=== PATIENT | male | born 1975 | race American Indian/Alaskan Native ===

== ENCOUNTER 2021-12-16 09:41 | Emergency (ER) | payer SELFPAY ==
[2021-12-16] MEDS ORDERED: Sodium Chloride 0.9% 1,000 ML IV STA (10:03)
[2021-12-16] MEDS ORDERED: Morphine 4 MG/ML VIAL IVPUSH ONE (10:13)
[2021-12-16 10:55] LABS: CARBON DIOXIDE,CO2 24.2 mmol/L (21.0-32.0); POTASSIUM,K 4.6 mmol/L (3.5-5.1)
[2021-12-16] MEDS ORDERED: Piperacillin/Tazobactam 3.375 GM in Sodium Chloride 0.9% 50 ML IV STA (11:12)
[2021-12-16] MEDS ORDERED: Sodium Chloride 0.9% 1,000 ML IV SCH (11:15)
[2021-12-16 11:26] LABS: BILIRUBIN INDIRECT 0.4
[2021-12-16] MEDS ORDERED: VANCOmycin 1.75 GM/350 ML 1.75 GM in Premix Bag 1 BAG IV ONE (11:30)
[2021-12-16] MEDS ORDERED: Iopamidol 755 MG/ML 500 ML Multipack Bottle IVPUSH STA (11:33)
== END 2021-12-16 19:45 ==
LOC: MW.ED 09:41
DX: A41.9 Sepsis, unspecified organism (principal); D50.0 Iron deficiency anemia secondary to blood loss (chronic); R19.00 Intra-abdominal and pelvic swelling, mass and lump, unspecified site; E87.2 Acidosis; Z20.822 Contact with and (suspected) exposure to COVID-19
CPT/HCPCS: 36415; 74177; 76705; 80053; 80143; 81003; 82247; 82248; 83010; 83605; 83615; 85025; 85379; 85384; 85610; 86308; 87040; 87635; 96361; 96365; 96366; 96368; 96375; 99291; 99292; J2270; J2543; J3370; J7030; P9016; Q9967; U0002

== ENCOUNTER 2022-01-20 16:39 | Emergency (ER) | payer SELFPAY ==
[2022-01-20] MEDS ORDERED: Sodium Chloride 0.9% 1,000 ML IV ONE (19:11)
[2022-01-20 19:20] LABS: CARBON DIOXIDE,CO2 24.3 mmol/L (21.0-32.0); POTASSIUM,K 3.9 mmol/L (3.5-5.1)
[2022-01-20] MEDS ORDERED: Iopamidol 755 MG/ML 500 ML Multipack Bottle IVPUSH STA (20:06)
== END 2022-01-20 21:51 | disposition home or self-care (01) ==
LOC: MW.ED 16:39
DX: K21.9 Gastro-esophageal reflux disease without esophagitis (principal); Z79.899 Other long term (current) drug therapy
CPT/HCPCS: 36415; 70491; 71045; 80053; 83690; 83735; 85025; 99284; J7030; Q9967

== ENCOUNTER 2022-01-22 17:28 | Emergency (ER) | payer SELFPAY ==
[2022-01-22] MEDS ORDERED: Sodium Chloride 0.9% 10 ML Syringe FLUSH PRN (19:50)
[2022-01-22] MEDS ORDERED: Sodium Chloride 0.9% 2.5 ML Syringe FLUSH PRN (19:50)
[2022-01-22] MEDS ORDERED: Sodium Chloride 0.9% 1,000 ML IV SCH (20:00)
[2022-01-22 21:17] LABS: CARBON DIOXIDE,CO2 22.9 mmol/L (21.0-32.0); POTASSIUM,K 4.4 mmol/L (3.5-5.1)
[2022-01-22] MEDS ORDERED: Iopamidol 755 MG/ML 500 ML Multipack Bottle IVPUSH ONE (21:45)
[2022-01-23] MEDS ORDERED: HYDROmorphone 1 MG/ML Syringe IVPUSH STA (02:57)
[2022-01-23] MEDS ORDERED: Dextrose 5%-Lactated Ringers 1,000 ML IV STA (05:16)
[2022-01-23] MEDS ORDERED: HYDROmorphone 1 MG/ML Syringe ONE (10:03)
[2022-01-23] MEDS ORDERED: HYDROmorphone 1 MG/ML Syringe IVPUSH ONE (10:05)
== END 2022-01-23 10:12 ==
LOC: MW.ED 17:28
DX: K83.1 Obstruction of bile duct (principal); Z79.899 Other long term (current) drug therapy; Z20.822 Contact with and (suspected) exposure to COVID-19
CPT/HCPCS: 36415; 74177; 80053; 83690; 85025; 87635; 96361; 96374; 99285; J1170; J3490; J7030; J7121; Q9967; U0002